=== PATIENT | female | born 1950 | race Caucasian/White ===

== ENCOUNTER 2016-10-23 19:19 | Emergency (ER) | payer OTHER ==
[~2016-10-23] VITALS: Ht 177.8 cm; Wt 102.1 kg
[~2016-10-23 19:19] MED LIST: ASPI-1093 PO; CALC-575 PO; METO25TA PO; OMEPRAZOLE PO; SIMVASTATIN PO; SYN.05 PO; VITD1000 PO; VOL25 PO
[2016-10-23 19:22] VITALS: BP 168/80
--- NOTE | 2016-10-23 19:22 | NUR ---
TO ER BED 3
--- NOTE | 2016-10-23 19:23 | NUR ---
Randy ribera in [facility] - 10/23/16 at 1939 by MEDSILVIA Patient being evaluated by physician at bedside.
--- NOTE | 2016-10-23 19:39 | NUR ---
Patient being evaluated by physician at bedside.
[2016-10-23] MEDS ORDERED: NACL 0.9% 1,000 ML IV ONE (19:40)
[2016-10-23] MEDS ORDERED: NITROGLYCERIN 2% 1 GM PKT TP ONE (19:40)
[2016-10-23] MEDS ORDERED: ASPIRIN 81 MG TAB.CHEW PO ONE (19:40)
--- NOTE | 2016-10-23 19:40 | NUR ---
PATIENT PRESENTS TO ED WITH CHEST PAIN . PT DENIES N/V/D; SKIN IS PINK/WARM/DRY; AAOX4 WITH EVEN AND STEADY GAIT; LUNGS CLEAR BL; HR EVEN AND REGULAR; PT DENIES ANY FEVER, SOB, OR COUGH AT THIS TIME; PATIENT STATES PAIN OF 8/10 AT THIS TIME; VSS; PATIENT POSITIONED FOR COMFORT; HOB ELEVATED; BEDRAILS UP X2; BED DOWN. ER MD MADE AWARE OF PT STATUS.
--- NOTE | 2016-10-23 19:42 | NUR ---
DR KENNEDY AT BEDSIDE
[2016-10-23] MEDS ORDERED: MORPHINE SULFATE 2 MG/ML SYR IVP ONE (19:50)
[2016-10-23 19:57] LABS: CALCIUM 9.4 mg/dL (8.5-10.1); CARBON DIOXIDE 29.9 mmol/L (21-32); CREATININE 0.9 mg/dL (0.6-1.3); POTASSIUM 3.9 mmol/L (3.5-5.1)
[2016-10-23 19:58] LABS: BASOPHILS # (AUTO) 0.3 K/uL (0.00-0.22); BASOPHILS % (AUTO) 3.6 % (0.0-2.0); EOSINOPHILS # (AUTO) 0.2 K/uL (0-0.4); EOSINOPHILS % (AUTO) 2.7 % (0.0-4.0); HEMATOCRIT 46.6 % (36-48); HEMOGLOBIN 15.1 g/dL (12.0-16.0); LYMPHOCYTES # (AUTO) 2.5 K/uL (2.5-16.5); LYMPHOCYTES % (AUTO) 31.8 % (20.5-51.1); MEAN CORPUSCULAR HEMOGLOBIN 27 pg (27-31); MEAN CORPUSCULAR HGB CONC 32 g/dL (33-37); MEAN CORPUSCULAR VOLUME 83 fL (80-94); MONOCYTES # (AUTO) 0.8 K/uL (0.8-1.0); MONOCYTES % (AUTO) 10.6 % (1.7-9.3); NEUTROPHILS # (AUTO) 3.9 K/uL (1.8-7.7); NEUTROPHILS % (AUTO) 51.3 % (42.2-75.2); PLATELET COUNT (AUTO) 181 K/uL (140-450); RED BLOOD CELL COUNT(AUTO) 5.59 MIL/uL (4.20-5.40); WHITE BLOOD COUNT (AUTO) 7.7 K/uL (4.8-10.8)
[2016-10-23 20:02] LABS: ALBUMIN 3.5 g/dL (3.4-5.0); TOTAL BILIRUBIN 0.3 mg/dL (0.0-1.0); TOTAL PROTEIN, SERUM 7.6 g/dL (6.4-8.2)
[2016-10-23 20:14] LABS: INR 1.1 (0.8-1.2); PARTIAL THROMBOPLASTIN TIME 24.2 secs (22-35.6); PROTHROMBIN TIME 10.1 secs (10.8-13.4)
--- NOTE | 2016-10-23 20:21 | NUR ---
PT STATES PAIN IS 4 NOW
[2016-10-23] MEDS ORDERED: KETOROLAC 30 MG/ML VIAL IVP ONE (21:10)
[2016-10-23] MEDS ORDERED: PIPERACILLIN/TAZOBACTAM 3.375 GM in DEXTROSE 5% 50 ML IV ONE (21:25)
[2016-10-23] MEDS ORDERED: PIPERACILLIN/TAZOBACTAM 3.375 GM VIAL IV ONE (21:33)
[2016-10-23 22:26] VITALS: BP 148/84
--- NOTE | 2016-10-23 22:26 | NUR ---
Patient discharged with v/s stable. Written and verbal after care instructions given and explained. Patient alert, oriented and verbalized understanding of instructions. Ambulatory with steady gait. All questions addressed prior to discharge. ID band removed. Patient advised to follow up with PMD. Rx of AMOXICILLIN AND MOTRIN given. Patient educated on indication of medication including possible reaction and side effects. Opportunity to ask questions provided and answered.
== END 2016-10-23 20:25 | disposition home or self-care (01) ==
LOC: MED 19:19
DX: J18.9 Pneumonia, unspecified organism (principal); I10 Essential (primary) hypertension; Z79.899 Other long term (current) drug therapy
CPT/HCPCS: 36415; 71010; 80053; 81002; 84484; 85025; 85610; 85730; 87040; 93005; 96361; 96365; 96375; 99285; J1885; J2270; J2543; J7030; J7060; Q0092

== ENCOUNTER 2016-10-25 18:49 | Inpatient (IN) | payer OTHER ==
[~2016-10-25] VITALS: Ht 177.8 cm; Wt 102.1 kg
[2016-10-25 19:00] VITALS: BP 162/72
--- NOTE | 2016-10-25 19:22 | NUR ---
PT TAKEN TO [facility] FROM [facility]
--- NOTE | 2016-10-25 19:28 | NUR ---
PT RETURN FROM XRAY TO LOBBY
--- NOTE | 2016-10-25 21:08 | NUR ---
PT TAKEN TO BED 5
--- NOTE | 2016-10-25 21:10 | NUR ---
PATIENT PRESENTS TO ED WITH C/O CHEST PAIN AND SOB, DENIES N/V/D; SKIN IS PINK/WARM/DRY; AAOX4 WITH EVEN AND STEADY GAIT; LUNGS CLEAR BL; HR EVEN AND REGULAR; PATIENT STATES PAIN OF 9/10 STABBING PAIN TO CHEST AT THIS TIME; VSS; PATIENT POSITIONED FOR COMFORT; HOB ELEVATED; BEDRAILS UP X2; BED DOWN. ER MD MADE AWARE OF PT STATUS.
--- NOTE | 2016-10-25 22:00 | NUR ---
Dr. Page evaluating patient at bedside.
[2016-10-25] MEDS ORDERED: NITROGLYCERIN 0.4 MG TAB SL ONE (22:10)
[2016-10-25] MEDS ORDERED: ASPIRIN 325 MG TAB PO ONE (22:10)
[2016-10-25 22:12] LABS: BASOPHILS # (AUTO) 0.2 K/uL (0.00-0.22); EOSINOPHILS # (AUTO) 0.2 K/uL (0-0.4); EOSINOPHILS % (AUTO) 2.4 % (0.0-4.0); HEMOGLOBIN 14.7 g/dL (12.0-16.0); LYMPHOCYTES # (AUTO) 1.8 K/uL (2.5-16.5); LYMPHOCYTES % (AUTO) 21.2 % (20.5-51.1); MEAN CORPUSCULAR HEMOGLOBIN 27 pg (27-31); MEAN CORPUSCULAR HGB CONC 33 g/dL (33-37); MEAN CORPUSCULAR VOLUME 84 fL (80-94); MONOCYTES # (AUTO) 0.9 K/uL (0.8-1.0); MONOCYTES % (AUTO) 10.7 % (1.7-9.3); NEUTROPHILS # (AUTO) 5.5 K/uL (1.8-7.7); NEUTROPHILS % (AUTO) 63.7 % (42.2-75.2); PLATELET COUNT (AUTO) 176 K/uL (140-450); RED BLOOD CELL COUNT(AUTO) 5.36 MIL/uL (4.20-5.40); RED CELL DISTRIBUTION WIDTH 12.4 % (11.6-13.7); WHITE BLOOD COUNT (AUTO) 8.7 K/uL (4.8-10.8)
[2016-10-25 22:29] LABS: ALBUMIN 3.4 g/dL (3.4-5.0); ANION GAP 11.4 (8-16); CALCIUM 9.1 mg/dL (8.5-10.1); CARBON DIOXIDE 26.5 mmol/L (21-32); CREATININE 0.9 mg/dL (0.6-1.3); POTASSIUM 3.9 mmol/L (3.5-5.1); TOTAL BILIRUBIN 0.3 mg/dL (0.0-1.0); TOTAL PROTEIN, SERUM 7.1 g/dL (6.4-8.2)
[2016-10-25] MEDS ORDERED: MORPHINE SULFATE 4 MG/ML SYR IVP ONE ×2 (22:35→23:30)
[2016-10-25 22:36] LABS: INR 1.1 (0.8-1.2); PARTIAL THROMBOPLASTIN TIME 23.7 secs (22-35.6)
[2016-10-25 23:04] LABS: APPEARANCE,URINE SL CLOUDY (CLEAR); BILIRUBIN,URINE NEGATIVE (NEGATIVE); BLOOD, URINE TRACE-I (NEGATIVE); COLOR,URINE YELLOW (YELLOW); LEUKOCYTE ESTERASE ,URINE NEGATIVE (NEGATIVE); NITRITE, URINE NEGATIVE (NEGATIVE); PH,URINE 5.5 (5.0-9.0); PROTEIN,URINE NEGATIVE (NEGATIVE); UGLUCOSE NEGATIVE (NEGATIVE); UROBILINOGEN,URINE 0.2 EU/dL (0.2 - 1)
[2016-10-25 23:19] LABS: RBC,URINE 0-5 (RARE) /HPF (0-5)
[2016-10-25 23:20] LABS: BACTERIA,URINE FEW /HPF (None Seen); URINE AMORPHOUS URATE 4+ /HPF (None Seen); WBC,URINE 0-5 (RARE) /HPF (0-5)
[2016-10-25] MEDS ORDERED: ALBUTEROL 0.083% 2.5 MG/3 ML NEBU IH PRN (23:40)
[2016-10-25] MEDS ORDERED: INSULIN LISPRO SLIDING SCALE 100 UNITS/ML VIAL SUBQ PRN (23:40)
[2016-10-25] MEDS ORDERED: MORPHINE SULFATE 2 MG/ML SYR IVP PRN (23:40)
--- NOTE | 2016-10-25 23:40 | NUR ---
Patient will be admitted to care of DR. CONTRERAS. Admited to TELEMETRY]. Will go to [id number]. Belongings list completed.
[2016-10-25] MEDS ORDERED: ORE25 PO (23:48)
[2016-10-25] MEDS ORDERED: METF500T7 PO (23:48)
[2016-10-25] MEDS ORDERED: HYDR-3423 PO (23:48)
--- NOTE | 2016-10-25 23:55 | NUR ---
REPORT GIVEN TO ESCOBAR ROD
[2016-10-26 00:10] VITALS: BP 119/64
--- NOTE | 2016-10-26 00:10 | NUR ---
Admitted from ER TO TELEMETRY UNIT , with chief complaint of CHEST PAIN, 66 y/o ,Female, Cooperative, AWAKE, A/OX4. RESPIRATION EVEN AND UNLABORED, AMBULATORY TO BR. HEAD TO TOE ASSESSMENT DONE WITH CHARGE NURSE ZEESHAN, SKIN INTACT. CHEST PAIN ON AND OFF. INITIAL PAIN DESCRIBED THROBBING SHARP PAIN 9/10. DENIES PAIN, 0/10, AT THIS TIME,WAS GIVEN PAIN MEDICATION IN ER. oriented to call light, bed, phone,television, bathroom, smoking policy, visiting hours, procedures, ID bracelet on. Belongings list checked.
--- NOTE | 2016-10-26 00:20 | NUR ---
Patient's Plan of Care was discussed and reviewed with DUMPMAN: ESCOBAR RIVERA
--- NOTE | 2016-10-26 01:00 | NUR ---
SLEEPING COMFORTABLY IN BED.
[2016-10-26 04:40] VITALS: BP 139/83
--- NOTE | 2016-10-26 05:00 | NUR ---
BILATERAL LEG SEQUENTIALS APPLIED.
[2016-10-26] MEDS: LEVOTHYROXINE 0.05 MG TAB PO SCH (06:57)
[2016-10-26] MEDS: BLOOD GLUCOSE MONITORING 1 DEV DEV FS SCH ×4 (07:00→20:28)
--- NOTE | 2016-10-26 07:20 | NUR ---
RESTING IN BED, RESPIRATION EVEN AND UNLABORED. CONDITION REMAIN STABLE. ENDORSED TO JO-ANN SOTO FOR CONTINUITY OF CARE.
--- NOTE | 2016-10-26 07:21 | NUR ---
RECEIVED PT ASLEEP BUT EASILY AROUSABLE, AAOX4 WITHNO S/S OF RESPIRATORY DISTRESS OR DISCOMFORT, WITH IV ACCESS ON RIGHT AC 20G ON SALINE LOCK PATENT AND INTACT. SKIN IS INTACT. WITH SCDS ON. DISCUSSED PLAN OF CARE, PT VERBALIZED UNDERSTANDING. ORIENTED TO HOSPITAL ENVIRONMENT. CALL LIGHT WITHIN REACH, WILL CONTINUE TO MONITOR.
[2016-10-26 07:26] LABS: BASOPHILS # (AUTO) 0.1 K/uL (0.00-0.22); BASOPHILS % (AUTO) 1.4 % (0.0-2.0); EOSINOPHILS # (AUTO) 0.2 K/uL (0-0.4); EOSINOPHILS % (AUTO) 3.2 % (0.0-4.0); LYMPHOCYTES # (AUTO) 1.8 K/uL (2.5-16.5); LYMPHOCYTES % (AUTO) 28.1 % (20.5-51.1); MEAN CORPUSCULAR HEMOGLOBIN 28 pg (27-31); MEAN CORPUSCULAR HGB CONC 34 g/dL (33-37); MEAN CORPUSCULAR VOLUME 83 fL (80-94); MONOCYTES # (AUTO) 0.6 K/uL (0.8-1.0); MONOCYTES % (AUTO) 9.2 % (1.7-9.3); NEUTROPHILS # (AUTO) 3.7 K/uL (1.8-7.7); NEUTROPHILS % (AUTO) 58.1 % (42.2-75.2); PLATELET COUNT (AUTO) 159 K/uL (140-450); RED BLOOD CELL COUNT(AUTO) 4.93 MIL/uL (4.20-5.40); RED CELL DISTRIBUTION WIDTH 12.6 % (11.6-13.7); WHITE BLOOD COUNT (AUTO) 6.4 K/uL (4.8-10.8)
--- NOTE | 2016-10-26 07:45 | NUR ---
PT VOMITED, WILL ADMINISTER ZOFRAN.
[2016-10-26 07:51] LABS: ALBUMIN 3.1 g/dL (3.4-5.0); ANION GAP 9.4 (8-16); CALCIUM 8.8 mg/dL (8.5-10.1); CARBON DIOXIDE 27.9 mmol/L (21-32); CREATININE 0.8 mg/dL (0.6-1.3); POTASSIUM 4.3 mmol/L (3.5-5.1); TOTAL BILIRUBIN 0.5 mg/dL (0.0-1.0); TOTAL PROTEIN, SERUM 6.6 g/dL (6.4-8.2)
[2016-10-26] MEDS: ONDANSETRON 4 MG/2 ML VIAL IVP PRN ×4 (07:56→21:52)
[2016-10-26 08:00] VITALS: BP 144/72
--- NOTE | 2016-10-26 08:04 | NUR ---
PATIENT HAS BEEN SCREENED AND CATEGORIZED MODERATE NUTRITION RISK. PATIENT WILL BE SEEN WITHIN 3-5 DAYS OF ADMISSION. 10/28/16-10/30/[address]
[2016-10-26] MEDS: ACETAMINOPHEN 325 MG TAB PO PRN (08:33)
[2016-10-26] MEDS: CALCIUM CARBONATE 500 MG TAB PO SCH ×2 (08:33→21:49)
[2016-10-26] MEDS: ASPIRIN 81 MG TAB.CHEW PO SCH (08:34)
[2016-10-26] MEDS: CHOLECALCIFEROL 1,000 IU TAB PO SCH ×2 (08:34→21:50)
[2016-10-26] MEDS: METOPROLOL 25 MG TAB PO SCH (08:34)
[2016-10-26] MEDS: DICLOFENAC 25 MG TABEC PO SCH ×2 (08:35→21:50)
[2016-10-26] MEDS: ENOXAPARIN 40 MG/0.4 ML SYR SUBQ SCH (08:41)
--- NOTE | 2016-10-26 08:41 | NUR ---
DUE MEDS GIVEN, PT TOLERATED WELL. RELATIVE AT BEDSIDE. WILL CONTINUE TO MONITOR.
[2016-10-26] MEDS ORDERED: REGADENOSON 0.4 MG/5 ML SYR IV SCH (09:30)
[2016-10-26] MEDS ORDERED: ALUMINUM HYD/MAG/SIMETHICONE 30 ML UDC PO PRN (10:10)
[2016-10-26] MEDS ORDERED: PANTOPRAZOLE 40 MG INJ VIAL IVP SCH (10:37)
--- NOTE | 2016-10-26 10:38 | NUR ---
PT COMPLAINED OF STOMACH UPSET, NOTIFIED DR PITTMAN. WILL CARRY OUT NEW ORDERS
--- NOTE | 2016-10-26 11:55 | NUR ---
PT VOMITED AGAIN WITH CLEAR SECRETIONS, STATED HER STOMACH IS UPSET. WILL ADMINISTER ZOFRAN
[2016-10-26 12:00] VITALS: BP 139/65
--- NOTE | 2016-10-26 13:08 | NUR ---
PT RESTING COMFORTABLY AT THIS TIME WITH RELATIVES AT BEDSIDE. WILL CONTINUE TO MONITOR.
--- NOTE | 2016-10-26 13:30 | NUR ---
DR PITTMAN INFORMED OF PT REFUSAL OF LEXISCAN DUE TO VOMITTING, DR STEVE TO SEE PT
--- NOTE | 2016-10-26 13:59 | NUR ---
CM NOTE INITIAL REVIEW FAXED TO [facility] / FAX# [phone], ATTN: RANDAL #[phone]
--- NOTE | 2016-10-26 14:35 | NUR ---
DR STEVE AT BEDSIDE. PT STILL VOMITING AND HAS STOMACH UPSET, NOTIFIED DR PITTMAN, WILL ADMINISTER SIMETHICONE. PT COMPLAINS OF HEADACHE, COLD COMPRESS FOR THE HEAD GIVEN
[2016-10-26 16:00] VITALS: BP 144/68
[2016-10-26 16:02] LABS: CREATINE KINASE MB 0.9 ng/mL (0-3.6)
--- NOTE | 2016-10-26 16:05 | NUR ---
CM NOTE PATIENT TO BE TRANSPORTED BY [facility] TO [facility] VIBR[facility] SCREED OPERATOR TOMORROW . ETA: 1030. AUTH #'S PROVIDED BY ROSEMARY TEE FOR IE: [place]SP[place]: [id number], [facility] [place] [id number]
--- NOTE | 2016-10-26 16:20 | NUR ---
PT RESTING COMFORTABLY ON BED, NO COMPLAINTS AT THIS TIME. WILL CONTINUE TO MONITOR
[2016-10-26] MEDS: NACL 0.9% 1,000 ML IV SCH (18:29)
--- NOTE | 2016-10-26 18:39 | NUR ---
NOTIFIED DR CONTRERAS CRAY FISHING HAND FOR DR PITTMAN REGARDING PT NOT BEING ABLE TO EAT OR DRINK ALL DAY, VOMITING HEADACHE, WILL CARRY OUT NEW ORDER
--- NOTE | 2016-10-26 19:21 | NUR ---
ENDORSED PT TO REWRITER NURSE IN STABLE CONDITION FOR CONTINUITY OF CARE
--- NOTE | 2016-10-26 19:45 | NUR ---
SEEN PT UP GOING TO THE BATHROOM. SON AT BEDSIDE.
--- NOTE | 2016-10-26 19:50 | NUR ---
PT WALKING BACK TO BED. SCD APPLIED. INITIAL ASSESSMENT DONE. PT COMPLAINS OF 3/10 CHEST PAIN AND 5/10 HEADACHE. AND STILL HAS STOMACH UPSET. PT AWARE OF HER TRANSFER IN AM FOR HER ANGIOGRAM. SAFETY ENSURED. CALL LIGHT W/IN REACH.
[2016-10-26 20:00] VITALS: BP 126/75
--- NOTE | 2016-10-26 21:50 | NUR ---
DUE MEDICATIONS GIVEN W/ TEACHINGS. PT VERBALIZED UNDERSTANDING. PT DENIES ANY OTHER NEEDS. WILL CONTINUE TO MONITOR.
[2016-10-27] VITALS: BP 125/63
--- NOTE | 2016-10-27 | NUR ---
AWAKEN PT. VITAL SIGNS CHECKED. EXTRA PILLOW GIVEN TO SUPPORT RT ARM. PT DENIES ANY DISCOMFORT.
[2016-10-27 04:00] VITALS: BP 141/74
--- NOTE | 2016-10-27 04:00 | NUR ---
SEEN PT AWAKE. VITAL SIGNS CHECKED. PT ASKED FOR TYLENOL FOR HER HEADACHE. WILL MEDICATE ORDERED.
[2016-10-27] MEDS: ACETAMINOPHEN 325 MG TAB PO PRN ×4 (04:22→19:36)
[2016-10-27] MEDS: NACL 0.9% 1,000 ML IV SCH ×2 (04:22→14:20)
--- NOTE | 2016-10-27 06:00 | NUR ---
PT UP TO THE BATHROOM. BLOOD SUGAR CHECKED:109 NO COVERAGE NEEDED. PO MEDICATION GIVEN W/ TEACHINGS. PT KEPT COMFORTABLE.
[2016-10-27] MEDS: BLOOD GLUCOSE MONITORING 1 DEV DEV FS SCH ×4 (06:29→20:37)
[2016-10-27] MEDS: LEVOTHYROXINE 0.05 MG TAB PO SCH (06:30)
--- NOTE | 2016-10-27 07:05 | NUR ---
REPORT GIVEN TO DAYSHIFT NURSE FOR CONTINUITY OF CARE.
--- NOTE | 2016-10-27 07:06 | NUR ---
RECEIVED PT ASLEEP BUT EASILY AROUSABLE, AAOX4, NO S/S OF RESPIRATORY DISTRESS, WITH IV ACCESS ON RIGHT AC 20G INFUSING FLUIDS WELL. SKIN IS INTACT. PER PT SHE IS LESS NAUSEATED NOW BUT HEADACHE STILL PERSISTS. WILL ADMINISTER TYLENOL. DISCUSSED PLAN OF CARE AND TRANSFER TO [facility], PT VERBALIZED UNDERSTANDING. CALL LIGHT WITHIN REACH, WILL CONTINUE TO MONITOR
[2016-10-27 08:00] VITALS: BP 144/73
[2016-10-27] MEDS: ENOXAPARIN 40 MG/0.4 ML SYR SUBQ SCH (09:00)
[2016-10-27] MEDS: CHOLECALCIFEROL 1,000 IU TAB PO SCH ×2 (09:00→20:38)
[2016-10-27] MEDS: METOPROLOL 25 MG TAB PO SCH (09:00)
[2016-10-27] MEDS: CALCIUM CARBONATE 500 MG TAB PO SCH ×2 (09:00→20:38)
[2016-10-27] MEDS: DICLOFENAC 25 MG TABEC PO SCH ×2 (09:00→20:44)
[2016-10-27] MEDS: ASPIRIN 81 MG TAB.CHEW PO SCH (09:06)
--- NOTE | 2016-10-27 09:14 | NUR ---
HELD ORAL MEDS AND LOVENOX, REPORT GIVEN TO JO-ANN QUARLES OF [facility] REGARDING TRANSFER.
--- NOTE | 2016-10-27 09:23 | NUR ---
CM NOTE RECEIVED PHONE CALL FROM WALT FROM [facility] HEAR[facility] HELPER. UNABLE TO KEEP SCHEDULED TIME AT 1430 AND WILL NEED TO RESCHEDULED LATER TODAY, WILL KEEP CM UPDATED ON RESCHEDULED TIME. [facility] NOTIFIED; PATIENT PLACED ON WILL CALL TRANSPORT. CHARLES BUSCH MADE AWARE; NO ROUTER OPERATOR @ 1030 AND WILL UPDATE WHEN NOTIFIED BY [facility] HELPER.
--- NOTE | 2016-10-27 09:30 | NUR ---
PER CM, TRANSPORT ALREADY NOTIFIED RE: DELAY
--- NOTE | 2016-10-27 09:40 | NUR ---
NOTIFIED DR STEVE RE: DELAY IN PT PROCEDURE AT [facility], PER MD HE WAS NOT NOTIFIED BY [facility] AND WILL CALL THEM
--- NOTE | 2016-10-27 11:46 | NUR ---
PT AMBULATED ALONG THE HALLWAYS AND HAD SHOWER.
[2016-10-27 12:00] VITALS: BP 136/67
--- NOTE | 2016-10-27 12:10 | NUR ---
DUE MED GIVEN VIA IVP, PT TOLERATED WELL. ALSO COMPLAINED OF HEADACHE, ADMINISTERED TYLENOL. WILL REASSESS
[2016-10-27] MEDS ORDERED: PANTOPRAZOLE 40 MG INJ VIAL IVP SCH (13:00)
--- NOTE | 2016-10-27 13:13 | NUR ---
PER CM, [facility] IS NOT SURE IF PROCEDURE CAN BE DONE TODAY. PAGED DR STEVE, WILL AWAIT FOR CALL
--- NOTE | 2016-10-27 14:05 | NUR ---
CM NOTE CONCURRENT REVIEW FAXED TO [facility] / FAX# [phone], ATTN: RANDAL #[phone]
--- NOTE | 2016-10-27 14:49 | NUR ---
SPOKE TO DR STEVE AND NOTIFIED RE: PT REQUEST TO HAVE THE PROCEDURE DONE OUTPATIENT, PER MD, PT IS HIGH RISK, WILL EXPLAIN TO PT. DIET ORDERS IN, WILL CARRY OUT ORDER
[2016-10-27] MEDS: ONDANSETRON 4 MG/2 ML VIAL IVP PRN (15:36)
--- NOTE | 2016-10-27 15:39 | NUR ---
PT COMPLAINED OF STOMACH UPSET AFTER EATING, ZOFRAN ADMINISTERED VIA IVP.
[2016-10-27 16:00] VITALS: BP 144/71
--- NOTE | 2016-10-27 17:31 | NUR ---
PT RESTING COMFORTABLY AT THIS TIME WITH DAUGHTER AT BEDSIDE. CALL LIGHT WITHIN REACH, WILL CONTINUE TO MONITOR.
--- NOTE | 2016-10-27 19:26 | NUR ---
ENDORSE PT TO LORE, RN IN STABLE CONDITION FOR CONTINUITY OF CARE
--- NOTE | 2016-10-27 19:35 | NUR ---
RECEIVED PT IN STABLE CONDITION FROM AM NURSE. AWAKE,ALERT AND ORIENTED X4. ON TELE MONITOR. AMBULATORY. WITH IVF INFUSING WELL ON THE RT AC #20. CLEAR AND PATENT. C/O CONSTANT HEADACHE. WILL MEDICATE ORDERED. PLAN OF CARE DISCUSSED AND VERBALIZED UNDERSTANDING. BED ON LOW POSITION. CALL LIGHT PLACED WITHIN EASY REACH. WILL CONTINUE TO MONITOR.
--- NOTE | 2016-10-27 19:54 | NUR ---
MARIA DEL CARMEN STEVE CAME AND TALKED TO PT. FOR TRANSFER TO [facility] TOMORROW FOR CARDIAC CATH. PT AWARE.
[2016-10-27 20:00] VITALS: BP 146/74
[2016-10-27] MEDS ORDERED: PNEUMOCOCCAL VACCINE 23 MCG/0.5 ML VIAL IMVAC SCH (21:00)
--- NOTE | 2016-10-27 22:00 | NUR ---
SLEEPING WELL AT THIS TIME. NO S/S OF ANY DISCOMFORT NOTED. WILL CONTINUE TO MONITOR.
[2016-10-28] VITALS: BP 127/66
[2016-10-28] MEDS: NACL 0.9% 1,000 ML IV SCH (00:20)
--- NOTE | 2016-10-28 01:50 | NUR ---
IV ON RT AC INFILTRATED. DISCONTINUED THEN STARTED A NEW IV ACCESS BY JULIET ON THE LT WRIST #22. CLEAR AND PATENT.
--- NOTE | 2016-10-28 04:00 | NUR ---
UP TO THE BATHROOM, VOIDED. NO C/O ANY PAIN NOR DISCOMFORT NOTED.
[2016-10-28 04:05] VITALS: BP 136/70
[2016-10-28] MEDS: LEVOTHYROXINE 0.05 MG TAB PO SCH (06:27)
[2016-10-28] MEDS: BLOOD GLUCOSE MONITORING 1 DEV DEV FS SCH ×2 (06:28→10:57)
--- NOTE | 2016-10-28 06:28 | NUR ---
BLOOD SUGAR WAS CHECKED THIS AM RESULT 85. PT HAD SOME APPLE JUICE.
--- NOTE | 2016-10-28 07:27 | NUR ---
RECEIVED PT IN BED ALERT, AWAKE, ORIENTED X 4. NO SOB NOTED. DENIES ANY PAIN OR DISCOMFORT AT THIS TIME. POSITIVE BOWEL SOUNDS NOTED ON FOUR QUADRANTS. PT AMBULATORY. SKIN INTACT. SAFTY PRECAUTION IN PLACE. CALL LIGHT WITHIN REACH.
--- NOTE | 2016-10-28 07:30 | NUR ---
ENDORSED PT IN STABLE CONDITION TO AM NURSE.
[2016-10-28 08:00] VITALS: BP 140/78
[2016-10-28] MEDS: DICLOFENAC 25 MG TABEC PO SCH (08:26)
[2016-10-28] MEDS: METOPROLOL 25 MG TAB PO SCH (08:27)
[2016-10-28] MEDS: CHOLECALCIFEROL 1,000 IU TAB PO SCH (08:27)
[2016-10-28] MEDS: CALCIUM CARBONATE 500 MG TAB PO SCH (08:27)
--- NOTE | 2016-10-28 08:28 | NUR ---
FAXED CONCURRENT REVIEW TO [facility] [phone] PHONE RANDAL [phone] CALLED [facility] HELPER AND SPOKE WITH WALT. THE CARDIAC CATH IS SCHEDULED FOR 3P.M. AND TO HAVE THE PATIENT THERE BY NOON. I CALLED [facility] AND SPOKE WITH DANELLE AND SET UP P[facility]UP [facility] FOR 11:15 A.M. I INFORMED KRISTAL BUSCHSOFA INSPECTOR NURSE OF THE TIME OF PICKUP.
[2016-10-28] MEDS: ENOXAPARIN 40 MG/0.4 ML SYR SUBQ SCH (08:30)
[2016-10-28] MEDS: ASPIRIN 81 MG TAB.CHEW PO SCH (08:30)
--- NOTE | 2016-10-28 09:02 | NUR ---
EXPLAINED TO PT, REGARDING TRANSFER TO [facility]. PT SIGNED PT TRANSFER ACKNOWLEDGEMENT FORM. VERBALIZED UNDERSTANDING.
--- NOTE | 2016-10-28 11:15 | NUR ---
[facility] TRANSPORTATION CAME TO MOTOR TUNE UP SPECIALIST PT. BLOOD SUGAR CHECKED 79, PT ON NPO FOR CARDIAC CATH PROCEDURE. VITAL SIGNS TAKEN AND STABLE. DENIES ANY PAIN OR DISCOMFORT. NO SOB. TRANSFERRED TO [facility] SAFELY AND COMFORTABLY. IV INTACT ON LEFT HAND G22. NAME ARM BAND REMOVED. TELE BOX REMOVED.
--- NOTE | 2016-10-28 11:20 | NUR ---
CALLED [facility] SPOKE WITH DOROTHY OF DENTAL FINANCIAL COORDINATOR. GAVE REPORT REGARDING PT TRANSFER. VITAL SIGNS STABLE. DENIES ANY PAIN OR DISCOMFORT. NO SOB NOTED AT THIS TIME.
== END 2016-10-28 11:20 | disposition short-term general hospital (02) | DRG 198 ==
LOC: MED 18:49 → INTOOBSV 23:46 → MTU 23:46 → OBSVTOIN 10-27 19:20
PROVIDERS: ADMIT Hospitalist; ATTEND Hospitalist
DX: I20.0 Unstable angina (principal); I11.9 Hypertensive heart disease without heart failure; E11.9 Type 2 diabetes mellitus without complications; E78.5 Hyperlipidemia, unspecified; E03.9 Hypothyroidism, unspecified; E66.9 Obesity, unspecified; K21.9 Gastro-esophageal reflux disease without esophagitis; Z79.82 Long term (current) use of aspirin; Z79.84 Long term (current) use of oral hypoglycemic drugs; Z79.899 Other long term (current) drug therapy; Z68.32 Body mass index [BMI] 32.0-32.9, adult
CPT/HCPCS: 96374; 96376; 99285; G0378; 36415; 71010; 80053; 81001; 82550; 82553; 82948; 83880; 84484; 85025; 85379; 85610; 85730; 87081; 90732; 93005; C9113; J1650; J2270; J2405; J2785; J7030

== ENCOUNTER 2017-02-22 05:55 | Day surgery (SDC) | payer OTHER ==
[~2017-02-22] VITALS: Ht 172.7 cm; Wt 99.3 kg
[~2017-02-22 05:55] MED LIST changes: +HYDR-3423 PO; +METF500T7 PO; +ORE25 PO
[2017-02-22] MEDS ORDERED: ONDANSETRON 4 MG/2 ML VIAL IVP PRN (08:25)
[2017-02-22] MEDS ORDERED: IBUPROFEN 800 MG TAB PO PRN (08:25)
[2017-02-22] MEDS ORDERED: MORPHINE SULFATE 4 MG/ML SYR IM/IVP PRN (08:25)
[2017-02-22] MEDS ORDERED: ACETAMINOPHEN/CODEINE 300/30MG 1 TAB PO PRN (08:25)
[2017-02-22] MEDS ORDERED: PROPOFOL 200 MG/20 ML VIAL IV ONE (08:30)
[2017-02-22] MEDS ORDERED: MIDAZOLAM 2 MG/2 ML VIAL ONE (08:43)
[2017-02-22] MEDS ORDERED: fentaNYL 0.05 MG/ML VIAL ONE (08:43)
[2017-02-22] MEDS ORDERED: MORPHINE SULFATE 2 MG/ML SYR IVP PRN (08:55)
[2017-02-22] MEDS ORDERED: METOCLOPRAMIDE 10 MG/2 ML INJ VIAL IVP PRN (08:55)
[2017-02-22] MEDS ORDERED: MIDAZOLAM 2 MG/2 ML VIAL IV ONE (08:55)
[2017-02-22] MEDS ORDERED: MORPHINE SULFATE 4 MG/ML SYR IVP PRN ×2 (08:55)
== END 2017-02-22 10:22 | disposition home or self-care (01) ==
LOC: MDS 05:55 → MMU 05:56 → MDS 10:22
PROVIDERS: ATTEND Obstetrics & Gynecology
DX: N95.0 Postmenopausal bleeding (principal); I10 Essential (primary) hypertension; E03.9 Hypothyroidism, unspecified; E78.5 Hyperlipidemia, unspecified; E66.01 Morbid (severe) obesity due to excess calories; E11.9 Type 2 diabetes mellitus without complications; Z98.51 Tubal ligation status; Z98.890 Other specified postprocedural states; Z79.899 Other long term (current) drug therapy
CPT/HCPCS: 58120; 82948; 93005; J2250; J2704; J3010; J7030; J7120